=== PATIENT | female | born 1970 | race Hispanic/Latino ===

== ENCOUNTER 2018-06-02 14:11 | Emergency (ER) | payer MEDICARE ==
[2018-06-02] MEDS ORDERED: ACETAMINOPHEN EXTRA STRENGTH 500 MG TABLET ONE (14:41)
[2018-06-02 14:44] LABS: APPEARANCE,URINE Cloudy (CLEAR); BILIRUBIN,URINE Negative (NEGATIVE); COLOR,URINE Dark Yellow (YELLOW); GLUCOSE, URINE (UA) Negative (NEGATIVE); KETONES,URINE Negative (NEGATIVE); LEUKOCYTE ESTERASE ,URINE Large (NEGATIVE); NITRATE,URINE Positive (NEGATIVE); OCCULT BLOOD,URINE Small (NEGATIVE); PH,URINE 7.5 (5.0-8.0); PROTEIN,URINE Negative (NEGATIVE)
[2018-06-02 14:46] LABS: HCG,QUAL RESULT NEGATIVE (NEGATIVE)
[2018-06-02 14:51] LABS: BACTERIA,URINE Few /HPF (None Seen); RBC,URINE None Seen /HPF (0-1); WBC,URINE 26-50 /HPF (0-1)
== END 2018-06-02 15:58 | disposition home or self-care (01) ==
LOC: EDH 14:11
DX: N39.0 Urinary tract infection, site not specified (principal); I10 Essential (primary) hypertension; E11.9 Type 2 diabetes mellitus without complications; F41.9 Anxiety disorder, unspecified; K21.9 Gastro-esophageal reflux disease without esophagitis; F31.9 Bipolar disorder, unspecified; Z88.6 Allergy status to analgesic agent
CPT/HCPCS: 81001; 81025

== ENCOUNTER 2019-10-08 15:01 | Observation (INO) | payer MEDICARE ==
[~2019-10-08] VITALS: Ht 167.6 cm; Wt 103.0 kg
[2019-10-08 16:15] LABS: APPEARANCE,URINE Clear (CLEAR); BILIRUBIN,URINE Negative (NEGATIVE); COLOR,URINE Yellow (YELLOW); GLUCOSE, URINE (UA) >=1000 mg/dL (NEGATIVE); KETONES,URINE Negative (NEGATIVE); LEUKOCYTE ESTERASE ,URINE Negative (NEGATIVE); NITRATE,URINE Negative (NEGATIVE); OCCULT BLOOD,URINE Large (NEGATIVE); PH,URINE 6.5 (5.0-8.0); PROTEIN,URINE Negative (NEGATIVE); UROBILINOGEN,URINE 0.2 mg/dL (0.2-1.0)
[2019-10-08 16:22] LABS: AMPHET/METH SCREEN,URINE NEGATIVE (NEGATIVE); BARBITURATE SCREEN, URINE NEGATIVE (NEGATIVE); BENZODIAZEPINES SCREEN,URINE NEGATIVE (NEGATIVE); CANNABINOID SCREEN,URINE NEGATIVE (NEGATIVE); COCAINE SCREEN,URINE POSITIVE (NEGATIVE); OPIATE SCREEN,URINE NEGATIVE (NEGATIVE); PHENCYCLIDINE SCREEN,URINE NEGATIVE (NEGATIVE)
[2019-10-08 16:25] LABS: ABG OXYGEN SATURATION 47.6 % (95.0-99.0); BASE EXCESS,VENOUS BLOOD GAS 6.4 (-2.0-3.0); HCO3,VENOUS BLOOD GAS 32.6 (21.0-28.0); PCO2,VENOUS BLOOD GAS 52 (32-45); PH,VENOUS BLOOD GAS 7.412 (7.350-7.450)
[2019-10-08 16:28] LABS: BACTERIA,URINE Rare /HPF (None Seen); SQUAMOUS EPITHELIAL CELL,UR Rare /HPF (0-2)
[2019-10-08] MEDS ORDERED: CEFTRIAXONE SODIUM 1 GM ONE (16:30)
[2019-10-08] MEDS ORDERED: CLINDAMYCIN 900 MG/D5% WATER 50 ML IV ONE (16:30)
[2019-10-08] MEDS ORDERED: LIDOCAINE HCL 2% VISCOUS 15 ML UDCUP ONE (16:30)
[2019-10-08] MEDS ORDERED: KETOROLAC TROMETHAMINE 30MG/ML ONE (16:30)
[2019-10-08] MEDS ORDERED: SODIUM CHLORIDE 0.9% 1000ML 1,000 ML IV ONE ×2 (16:31→17:22)
[2019-10-08 16:39] LABS: BASOPHILS % (AUTO) 0.7 % (0.0-5.0); EOSINOPHILS % (AUTO) 1.5 % (0.0-8.0); HEMATOCRIT 42.4 % (36-48); LYMPHOCYTES % (AUTO) 16.8 % (21.0-51.0); MEAN CORPUSCULAR HGB CONC 31.6 g/dL (32.0-36.0); MEAN CORPUSCULAR VOLUME 79.3 fL (79-99); MONOCYTES % (AUTO) 4.8 % (3.0-13.0); NEUTROPHILS % (AUTO) 75.8 % (40.0-77.0); PLATELET COUNT (AUTO) 308 K/uL (130-400); RED BLOOD CELL COUNT(AUTO) 5.35 MIL/uL (4.00-5.50); WHITE BLOOD COUNT (AUTO) 15.8 K/uL (4.8-10.8)
[2019-10-08 16:58] LABS: POTASSIUM 5.3 mmol/L (3.5-5.1)
[2019-10-08 16:59] LABS: INR 1.05 (0.85-1.15); PARTIAL THROMBOPLASTIN TIME 27.5 SEC (26.3-35.5); PROTHROMBIN TIME 11.3 SEC (9.6-11.6)
[2019-10-08 17:03] LABS: ALBUMIN 3.4 g/dL (3.5-5.0); BILIRUBIN,TOTAL 0.7 mg/dL (0.2-1.0); TOTAL PROTEIN, SERUM 8.8 g/dL (6.0-8.3)
[2019-10-08] MEDS ORDERED: ORPHENADRINE CITRATE 30 MG/ML ML ONE (17:22)
[2019-10-08] MEDS ORDERED: HYDROCODONE/ACETAMINOPHEN 5/325 MG TAB ONE (19:50)
[2019-10-08] MEDS ORDERED: TETANUS/DIPHTHERIA TOXOID [ADULT] 0.5 ML VIAL IM ONE (20:24)
[2019-10-08] MEDS ORDERED: DiphenhydrAMINE HCL 50 MG/ML VIAL ONE (20:24)
[2019-10-08] MEDS ORDERED: DEXTROSE 50%-WATER 50 ML DISP.SYRIN IV PRN (20:45)
[2019-10-08] MEDS ORDERED: GLUCAGON 1MG KIT 1 MG ML IM PRN (20:45)
[2019-10-08] MEDS ORDERED: ONDANSETRON HCL 4 MG/2 ML VIAL IVP PRN (20:45)
[2019-10-08] MEDS ORDERED: ACETAMINOPHEN 325 MG TAB PO PRN ×3 (20:45→22:30)
[2019-10-08] MEDS ORDERED: INSULIN R PO SS1 SQ SCH (21:00)
[2019-10-08] MEDS: PHARMACY COMMUNICATION MISC SCH (21:00)
[2019-10-08] MEDS ORDERED: FAMOTIDINE 20MG TAB 20 MG TAB PO SCH (21:00)
[2019-10-08] MEDS ORDERED: INSULIN HUMULIN R 100 UNIT/ML 3ML ONE (21:05)
[2019-10-08] MEDS ORDERED: NITROGLYCERIN 0.4 MG SL TAB SL PRN (22:30)
[2019-10-08] MEDS ORDERED: DiphenhydrAMINE HCL 50 MG/ML VIAL IV PRN (22:30)
[2019-10-08] MEDS ORDERED: ONDANSETRON HCL 4 MG/2 ML VIAL IV PRN (22:30)
[2019-10-08 22:50] VITALS: BP 147/63
[2019-10-08 22:50] LABS: HEMOGLOBIN A1C 9.4 % (4.0-6.0)
--- NOTE | 2019-10-08 22:50 | NUR ---
ADMISSION NOTE: Admitted to floor via stretcher. Fully awake and responsive. Placed in bed comfortably with HOBE. VS checked and recorded. Assesment done. ( See CPOE flow chart for full assessment). Oriented to room and use of call lights. Policies and procedures explained. Agreed and verbalized understanding. Still feels the pain , but manageable at this time. Plan of care initiated. Has IV site to [facility]g - patent and intact. Home meds list for family to bring. Monitored and cared for. No apparent distress at this time. Endorsed to next shift accordingly.
[2019-10-08] MEDS: CLINDAMYCIN 600 MG/D5% WATER 50 ML IV SCH (23:05)
[2019-10-08] MEDS: SODIUM CHLORIDE 0.9% 1000ML 1,000 ML IV SCH (23:05)
[2019-10-08] MEDS: INSULIN HUMULIN R 100 UNIT/ML 3ML SQ SCH (23:40)
--- NOTE | 2019-10-08 23:50 | NUR ---
Pt. complained that she couldn't sleep and needs pain medication. According to pt. standard tylenol is not effective on her. Called hospitalist with the following orders: 1. Toradol 15 mg IV Q6h for mod-severe pain 2. Restoril 15 mg po x 1 only for insomnia.
[2019-10-09] MEDS ORDERED: KETOROLAC TROMETHAMINE 15MG/ML IM PRN
[2019-10-09] MEDS ORDERED: TEMAZEPAM 15 MG CAPSULE ONE
[2019-10-09] MEDS ORDERED: KETOROLAC TROMETHAMINE 15MG/ML ONE
[2019-10-09] MEDS: PHARMACY COMMUNICATION MISC SCH ×3 (02:08→15:00)
[2019-10-09] MEDS: INSULIN HUMULIN R 100 UNIT/ML 3ML SQ SCH ×5 (03:31→20:36)
[2019-10-09 04:00] VITALS: BP 139/87
[2019-10-09] MEDS: CLINDAMYCIN 600 MG/D5% WATER 50 ML IV SCH ×2 (04:05→10:51)
[2019-10-09 05:23] LABS: HEMATOCRIT 35.7 % (36-48); MEAN CORPUSCULAR HEMOGLOBIN 24.6 pg (27.0-33.0); MEAN CORPUSCULAR HGB CONC 31.1 g/dL (32.0-36.0); PLATELET COUNT (AUTO) 239 K/uL (130-400); RED BLOOD CELL COUNT(AUTO) 4.52 MIL/uL (4.00-5.50); RED CELL DISTRIBUTION WIDTH 13.2 % (11.0-15.5); WHITE BLOOD COUNT (AUTO) 9.5 K/uL (4.8-10.8)
[2019-10-09 05:58] LABS: ALBUMIN 2.7 g/dL (3.5-5.0); BILIRUBIN,TOTAL 0.3 mg/dL (0.2-1.0); CREATININE 0.7 mg/dL (0.5-1.5); MAGNESIUM 1.7 mg/dL (1.80-2.40); POTASSIUM 3.1 mmol/L (3.5-5.1); TOTAL PROTEIN, SERUM 7.1 g/dL (6.0-8.3)
[2019-10-09 08:17] VITALS: BP 147/92
[2019-10-09 08:20] LABS: BASOPHILS % (MANUAL) 1 % (0-2); EOSINOPHILS % (MANUAL) 2 % (1-6); LYMPHOCYTES % (MANUAL) 36 % (22-44); MAN.DIFF COMMENT-IMPRESSION MANUAL DIFFERENTIAL; MONOCYTES % (MANUAL) 3 % (2-9); PLATELET MORPHOLOGY COMMENT ADEQUATE; SEGMENTED NEUTROPHILS % 58 % (40-70)
[2019-10-09] MEDS ORDERED: MAGNESIUM 2GM PREMIX 50ML 50 ML IV SCH (08:45)
[2019-10-09] MEDS ORDERED: LIDOCAINE HCL-MPF 1% 2ML VIAL IJ PRN (08:45)
[2019-10-09] MEDS ORDERED: POTASSIUM CHLORIDE 10% ELIXIR 20 MEQ/15 ML UDCUP PO PRN (08:45)
[2019-10-09] MEDS ORDERED: POTASSIUM CHLORIDE 20MEQ/100ML 100 ML IV PRN (08:45)
[2019-10-09] MEDS ORDERED: CEFTRIAXONE SODIUM 1 GM IVP SCH (09:00)
[2019-10-09] MEDS: SODIUM CHLORIDE 0.9% 1000ML 1,000 ML IV SCH ×3 (09:18→20:33)
[2019-10-09] MEDS: PANTOPRAZOLE SODIUM 40 MG TABLET.DR PO SCH (09:21)
[2019-10-09] MEDS: ENOXAPARIN SODIUM 30 MG/0.3 ML SQ SCH (09:22)
[2019-10-09] MEDS: POTASSIUM CHLORIDE 20 MEQ ERTAB PO PRN ×2 (09:44→15:10)
[2019-10-09 11:51] VITALS: BP 132/80
--- NOTE | 2019-10-09 13:57 | NUR ---
NUTRITION EDUCATION COMPLETED RD PROVIDED DIABETES MEDICAL NUTRITION THERAPY. PT IS FAMILIAR WITH DIET RECOMMENDATIONS SHE WAS DIAGNOSED APPROX. 3 YEARS AGO, SHE CLAIMED TO SEE RD IN THE PAST. BG LEVEL GOALS WERE ESTABLISHED WITH THE PT. ALL QUESTIONS WERE ANSWERED AND PT VERBALIZED UNDERSTANDING. UNCONTROLLED DIABETES COMPLICATIONS ALSO DISCUSSED WITH THE PT. EDUCATION MATERIALS WERE PROVIDED IN [place] FOR HOME. Addendum: 10/09/19 at [address] Amended: Links added.
[2019-10-09 16:03] VITALS: BP 135/75
[2019-10-09 20:00] VITALS: BP 144/89
[2019-10-09] MEDS ORDERED: TEMAZEPAM 15 MG CAPSULE PO ONE ×2 (21:20)
[2019-10-09] MEDS: ZOSYN 3.375GM+NS 50ML 50 ML IV SCH (22:23)
[2019-10-10] VITALS: BP 126/82
[2019-10-10 04:00] VITALS: BP 130/88
[2019-10-10 04:30] LABS: BASOPHILS % (AUTO) 0.7 % (0.0-5.0); EOSINOPHILS % (AUTO) 1.2 % (0.0-8.0); HEMATOCRIT 34.8 % (36-48); MEAN CORPUSCULAR HEMOGLOBIN 24.8 pg (27.0-33.0); MEAN CORPUSCULAR VOLUME 79.8 fL (79-99); MONOCYTES % (AUTO) 5.7 % (3.0-13.0); PLATELET COUNT (AUTO) 261 K/uL (130-400); RED BLOOD CELL COUNT(AUTO) 4.36 MIL/uL (4.00-5.50); RED CELL DISTRIBUTION WIDTH 13.2 % (11.0-15.5); WHITE BLOOD COUNT (AUTO) 11.8 K/uL (4.8-10.8)
[2019-10-10 04:41] LABS: CARBON DIOXIDE 33 mmol/L (21-32); CHLORIDE 99 mmol/L (101-111); CREATININE 0.7 mg/dL (0.5-1.5); GLOMERULAR FILTR. RATE CALC 95 mL/min (>60); GLUCOSE,RANDOM 218 mg/dL (70-105); POTASSIUM 3.9 mmol/L (3.5-5.1); SODIUM SERUM 135 mmol/L (136-145); UREA NITROGEN, BLOOD 5 mg/dL (7-18)
[2019-10-10] MEDS: ZOSYN 3.375GM+NS 50ML 50 ML IV SCH ×2 (05:27→14:15)
[2019-10-10] MEDS: INSULIN HUMULIN R 100 UNIT/ML 3ML SQ SCH ×2 (06:46→14:18)
[2019-10-10 08:00] VITALS: BP 140/92
[2019-10-10] MEDS: PANTOPRAZOLE SODIUM 40 MG TABLET.DR PO SCH (08:10)
[2019-10-10] MEDS: ENOXAPARIN SODIUM 30 MG/0.3 ML SQ SCH (08:11)
[2019-10-10 12:10] VITALS: BP 136/87
[2019-10-10] MEDS: SODIUM CHLORIDE 0.9% 1000ML 1,000 ML IV SCH (14:15)
== END 2019-10-10 15:45 | disposition home or self-care (01) ==
LOC: EDH 15:01 → EDHIP 18:45 → 3AH 20:56
PROVIDERS: ADMIT Internal Medicine; ATTEND Internal Medicine
DX: J32.0 Chronic maxillary sinusitis (principal); E11.65 Type 2 diabetes mellitus with hyperglycemia; E78.5 Hyperlipidemia, unspecified; F31.9 Bipolar disorder, unspecified; F41.9 Anxiety disorder, unspecified; F14.10 Cocaine abuse, uncomplicated; I10 Essential (primary) hypertension; E87.6 Hypokalemia; E66.9 Obesity, unspecified
CPT/HCPCS: 36415 ×3; 36600; 70486; 80048; 80053 ×2; 80305; 81001; 81025; 82010; 82803; 82948 ×9; 83036; 83605 ×2; 83735; 84145; 85025 ×3; 85610; 85730; 87040; 87641; 96361 ×2; 96365; 96366 ×2; 96367; 96372 ×2; 96375 ×2; 99285; G0378 ×7; J0696 ×2; J1200 ×2; J1650 ×2; J1815 ×9; J1885 ×3; J2360; J2543 ×3; J3475; J3490 ×4; J7030 ×5; 90714

== ENCOUNTER → 2023-03-08 | Outpatient (CLI) | payer OTHER | END | disposition home or self-care (01) | LOC: RAH 10:05 | PROVIDERS: ATTEND Internal Medicine | DX: R92.8 Other abnormal and inconclusive findings on diagnostic imaging of breast (principal); N60.02 Solitary cyst of left breast; N60.01 Solitary cyst of right breast | CPT/HCPCS: 76641; 77065 ==

== ENCOUNTER → 2023-03-28 | Outpatient (CLI) | payer OTHER ==
[2023-03-28 08:41] LABS: INR 1.04 (0.85-1.15)
[2023-03-28 08:43] LABS: PARTIAL THROMBOPLASTIN TIME 30.7 SEC (26.3-35.5)
== END | disposition home or self-care (01) ==
LOC: RAH 07:52
PROVIDERS: ATTEND Internal Medicine
DX: R59.1 Generalized enlarged lymph nodes (principal)
CPT/HCPCS: 36415; 76882; 85610; 85730

== ENCOUNTER → 2023-09-10 | Outpatient (CLI) | payer OTHER | END | disposition home or self-care (01) | LOC: RAH 10:57 | PROVIDERS: ATTEND Internal Medicine | DX: N60.01 Solitary cyst of right breast (principal); N60.02 Solitary cyst of left breast ==

== ENCOUNTER → 2024-08-25 | Outpatient (CLI) | payer OTHER ==
--- NOTE | 2024-08-26 08:43 | HMCIMG ---
SCREENING MAMMOGRAM REASON: Annual Exam COMPARISON: 09/10/2023 TECHNIQUE: CC and MLO views of the bilateral breasts were performed.CAD was performed as well. FINDINGS: Parenchymal density: There are scattered areas of fibroglandular density. There are no focal mass lesions. There are no pathologic appearing calcifications. There is no evidence of architectural distortion or skin thickening. IMPRESSION: Normal screening mammogram The patient was entered into a reminder system with a target due date for their next mammogram. BI-RADS CATEGORY 1: NEGATIVE Recommend monthly self breast exam as well as annual clinical examination. A negative x-ray should not delay biopsy if a dominant or clinically suspicious mass is present, since 8-10% of cancers are not identified by mammography. Dense breasts particularly, may obscure an underlying neoplasm. Some of these may be detected clinically and therefore, clinical examination is an essential part of breast evaluation.
== END | disposition home or self-care (01) ==
LOC: RAH 15:12
PROVIDERS: ATTEND Internal Medicine
DX: Z12.31 Encounter for screening mammogram for malignant neoplasm of breast (principal); R92.323 Mammographic fibroglandular density, bilateral breasts
CPT/HCPCS: 77067